=== PATIENT | male | born 1955 | race Caucasian/White ===

== ENCOUNTER → 2020-05-27 14:53 | Outpatient (BNVA) | payer MEDICARE, SELFPAY | PROVIDERS: PCP Internal Medicine; Visit Provider Urology | DX: R97.20 Elevated prostate specific antigen [PSA] (principal) | CPT/HCPCS: Q3014 ==

== ENCOUNTER 2020-06-14 08:18 | Outpatient (REF) | payer MEDICARE, SELFPAY ==
[2020-06-14 08:20] VITALS: BMI 27.6
[2020-06-14 08:22] VITALS: BP 145/86; PULSE 84; RESP 16; TEMP 36.1; O2SAT 96
--- NOTE | 2020-06-14 08:32 | MHC.SHP ---
Pre-Procedural Eval Section A The patient is an INPATIENT: No Changes since office visit: No Cold of Flu in the past 2 weeks, No New Medical Problems, No Changes in Medication and No Patient answered all questions The History & Physical has been completed within 30 days and I have reviewed it.: Yes Section B Chief Complaint: elevated prostate antigen Allergies: Allergies Allergy/AdvReac Type Severity Reaction Status Date / Time No Known Allergies Allergy Mild NONE Unverified 05/27/20 14:54 Plan I have reviewed the history and physical and performed a pertinent physical examination on my patient. No changes have occurred unless specified. TRUS prostate biopsy
--- NOTE | 2020-06-14 08:32 | PM.OP ---
Brief Operative Note Date of Service: 06/14/20 Pre-op diagnosis: elevated PSA Post-op diagnosis: same Procedure: TRUS - measure - prostate nerve block - prostate biopsy Surgeon: Hayden Elkins MD Anesthesia: local Estimated blood loss (mL): 0 Pathology: other (12 core prostate) Condition: stable Disposition: same day
--- NOTE | 2020-06-14 08:34 | W.PM.OPN ---
Operative Note Operative Note Date of Service: 06/14/20 Narrative: Preoperative diagnosis: Elevated PSA Postoperative diagnosis: Elevated PSA Procedure: 1. transrectal ultrasound measurement of prostate 2. transrectal ultrasound-guided pudendal nerve block 3. transrectal ultrasound-guided prostate biopsy 12 core Surgeon: Dr. Hayden Elkins Anesthetic: Local Indications for procedure: Elevated PSA - 8.0 Procedure: After informed consent was verified, the patient was brought into the procedure area and lay left-hand side down on the table. Patient identity confirmed. Perioperative antibiotics confirmed. Gel was placed per rectum Ultrasound probe was placed per rectum The prostate was measured in 3 dimensions Total volume equals 45gm There were multiple, small cystic structures and no calcifications noted and the prostate was homogeneous in nature A ultrasound-guided pudendal nerve block was performed using 10 cc of 1% lidocaine. 8 cc was placed at the base and 2 cc of the apex. A 12 core biopsy was performed with 6 cores each side. Two cores were taken at the apex, mid and base. Cores were spaced between lateral and medial. He tolerated the procedure well. Was able to ambulate to bathroom after 5 minutes. Printed instructions regarding antibiotic use and common side effects such as low-grade temperature and bleeding were given.
[2020-06-14 08:48] VITALS: BP 135/90; PULSE 79; RESP 16; O2SAT 96
== END 2020-06-14 08:19 | disposition home or self-care (01) ==
LOC: HO.MS 08:18
PROVIDERS: PCP Internal Medicine; Visit Provider Urology
PROC: (CPT 55700; principal; 2020-06-14 08:30)
DX: C61 Malignant neoplasm of prostate (principal); R97.20 Elevated prostate specific antigen [PSA]
CPT/HCPCS: 55700; 76942; 88305; 88344

== ENCOUNTER → 2020-06-28 15:49 | Outpatient (BNVA) | payer MEDICARE, SELFPAY | PROVIDERS: PCP Internal Medicine; Visit Provider Urology | DX: Z13.89 Encounter for screening for other disorder (principal) | CPT/HCPCS: Q3014 ==

== ENCOUNTER → 2020-07-08 09:50 | Outpatient (REF) | payer MEDICARE, SELFPAY ==
--- NOTE | ~2020-07-08 | NM_ITS ---
EXAMINATION: NM BONE SCAN OF THE WHOLE BODY CLINICAL INFORMATION: Prostate cancer. COMPARISON: None TECHNIQUE: Multiple gamma scintillation camera images of the whole body were performed 3 hours following the intravenous administration of 35 mCi Tc-99m MDP. FINDINGS: In the head, there is mild increased activity seen in the sinuses. Mild focal activity seen in bilateral frontal bones, nonspecific. In the thoracic cage and upper extremities, slightly heterogenous activity seen in the thoracic ribs with slight focal increased activity seen in the right 7th posterior rib. Mild increased activity seen in bilateral sternoclavicular joints suggestive of arthritic changes. In the spine, there is a focal increased activity seen in mid cervical spine. No additional abnormal activity seen in thoracic, lumbar or sacral spine. In the pelvis, no abnormal activity seen. In the lower extremities, there is mild focal increased activity seen in the right ankle. No other definite bony abnormalities are noted. The urinary bladder and faint visualization of both kidneys are noted. NM/NM bone scan whole body IMPRESSION: There is no convincing evidence for metastatic disease. However there is mild heterogeneity in the posterior thoracic vertebrae and mild increased focal activity seen in the right posterior 7th rib, nonspecific.
== END ==
LOC: HO.NUCMED 09:50
PROVIDERS: PCP Physician Assistant Medical; Visit Provider Urology
DX: C61 Malignant neoplasm of prostate (principal); C79.51 Secondary malignant neoplasm of bone
CPT/HCPCS: 78306; A9503

== ENCOUNTER → 2020-07-19 16:12 | Outpatient (BNVA) | payer MEDICARE, SELFPAY | PROVIDERS: PCP Internal Medicine; Visit Provider Urology | DX: Z13.89 Encounter for screening for other disorder (principal) | CPT/HCPCS: Q3014 ==

== ENCOUNTER → 2020-08-12 08:47 | Outpatient (BNVA) | payer MEDICARE, SELFPAY | PROVIDERS: PCP Internal Medicine; Visit Provider Urology | DX: C61 Malignant neoplasm of prostate (principal) | CPT/HCPCS: 99212 ==

== ENCOUNTER → 2020-09-27 10:31 | Outpatient (BNVA) | payer MEDICARE, SELFPAY | PROVIDERS: PCP Internal Medicine; Visit Provider Urology | DX: C61 Malignant neoplasm of prostate (principal) | CPT/HCPCS: 99212 ==

== ENCOUNTER → 2020-10-07 13:04 | Outpatient (BNVA) | payer MEDICARE, SELFPAY | PROVIDERS: PCP Internal Medicine; Visit Provider Urology | DX: C61 Malignant neoplasm of prostate (principal) | CPT/HCPCS: 96402; 99212; J9217 ==

== ENCOUNTER 2020-10-17 06:24 | Day surgery (SDC) | payer MEDICARE, SELFPAY ==
[2020-10-10 14:31] VITALS: BMI 27.6
[2020-10-17 07:03] VITALS: BP 160/94; PULSE 80; RESP 16; TEMP 36.3; O2SAT 95
[2020-10-17] MEDS: levoFLOXacin/D5W 500 MG/100 ML PIGGYBACK 100 MG IV (07:20)
--- NOTE | 2020-10-17 08:24 | P.CONAN_ITS ---
PMF Active Problems Active Problems: All Active Problems (Updated 10/10/20 @ 14:27 by Juana benavides) Elevated PSA (Acute) Prostate cancer (Acute) Past Medical History Medical History Asthma Elevated PSA Prostate cancer Surgical History Surgical History Hx of lumbar discectomy Hx of lumbar discectomy Hx of prostate biopsy Social History Social History Patient Tobacco Use Status: Never used Tobacco Use of substances other than those prescribed or required for medical reasons: No Are you DNR?: No Advance Directives: No Advance Directives Information Provided: Yes Meds Allergies Allergy/AdvReac Type Severity Reaction Status Date / Time No Known Allergies Allergy Mild NONE Verified 10/07/20 13:19 Home Medications Medication Instructions Recorded Confirmed Last Taken Type albuterol sulfate 90 mcg/actuation 90 mcg INHALATION Q4H PRN 05/27/20 10/10/20 Unknown History aerosol inhaler inhalational spacing device #1 ea 07/19/20 Unknown History peg-electrolyte solution 420 gram 4,000 ml PO DIRECTED 07/19/20 Unknown History oral solution prednisone 10 mg tablet 0 mg PO 07/19/20 Unknown History Exam Exam Date and Time: October 17, 2020 0824 Height,Weight and Vital Signs: Height 6 ft 2 in Weight 97.522 kg Last Vital Signs Temp 97.4 F 10/17/20 07:03 Pulse 80 10/17/20 07:03 Resp 16 10/17/20 07:03 BP 160/94 H 10/17/20 07:03 Pulse Ox 95 10/17/20 07:03 Airway Mallampati Class: II TM Dist: >3cm Neck ROM: Full Assessment and Plan Assessment Anesthesia Assessment: Anesthesia Plan Discussed and Chart Reviewed Final Anesthetic Review NPO: Yes ASA Class: II Final Preanesthetic Review: No Changes in Pt Med Stat, Meds/Allgs Chart Reviewed, Consent Obtained/Reviewed and Anes Risks/Benef Reviewed Patient Risk: Low Procedure Risk: Low Assessment/Block/Sedation in SS: Assess/Block/Sedation-SS Anesthetic Plan Anesthetic Plan: GA Disposition: Standard PACU
--- NOTE | 2020-10-17 08:33 | MHC.SHP ---
Pre-Procedural Eval Section A Date of Service: 10/17/20 Section B Chief Complaint: prostate ca Details of Present Illness: prostate cancer here for gold seed markers and SpaceOAR placement Relevant Family History (Specify if Yes): No Relevant Social History: None Present Medications: see Short Stay Collaborative assessment Medical History: No relevant PMH History of Previous Operations: No relevant previous surgery Allergies: Allergies Allergy/AdvReac Type Severity Reaction Status Date / Time No Known Allergies Allergy Mild NONE Verified 10/07/20 13:19 Review of Systems Sugical H&P ROS: Negative: Constitution, Cardiovascular, Respiratory, Neurological, Psychiatric, Hem-Onc, Allergic/Immunologic, Gastrointestinal, Genitourinary, Musculoskeletal, Integumentary, Endocrine and Eyes/Ears/Nose/Throat Exam Surgical H&P Exam: Normal: HEENT, Normal: Heart, Normal: Lungs, Normal: Extremities, Normal: Abdomen, Normal: Skin and Normal: Neurological Plan Diagnosis/Plan: Unchanged ( gold seed marker placement and SpaceOAR) I have reviewed the history and physical and performed a pertinent physical examination on my patient. No changes have occurred unless specified.
--- NOTE | 2020-10-17 09:01 | W.PM.OPN ---
Operative Note Operative Note Date of Service: 10/17/20 Narrative: Preoperative diagnosis: Prostate cancer Postoperative diagnosis: Prostate cancer Procedure: 1. Transrectal ultrasound-guided perineal gold seed placement 2. Treansrectal ultrasound-guided perineal SpaceOAR gel placement Surgeon: Dr. Hayden Elkins Anesthetic: Sedation Indications for procedure: Prostate Cancer Procedure: After informed consent was verified, the patient was brought into the operating room and anesthesia was performed per protocol. The patient was placed in a modified dorsal lithotomy position. Gel was placed per rectum Ultrasound probe was placed per rectum. The prostate was visualized in sagittal and transverse dimensions. Local anesthetic was infiltrated in the perineal area using 10 cc of lidocaine Gold seed markers were placed in a transperineal fashion using ultrasound guidance 3 gold seed markers placed in total. 2 on the right - 1 toward the base, the 2nd toward the apex. 1 on the left. The purpose is for triangulation. The 2nd part of the procedure was placement of SpaceOAR gel to allow consolidation for radiation delivery. The delivery needle was advanced bevel down in the midline under ultrasound guidance to the apex of the prostate. It was advanced in the plane the prostate from the rectum to the midpoint of the prostate. Location was determined using sagittal and transverse imaging. At the midpoint of the prostate 1 cc of saline was placed to confirm needle position. Second cc of saline was placed to confirm spread toward the base of the prostate. With the needle in the confirmed position 10 cc of gel mixture was injected. Good separation was seen of the rectum from the prostate space running in the midline from the base toward the apex of the prostate. Following completion of the procedure the probe was removed from the rectum. He tolerated the procedure well. He was extubated in the operating room and transferred in stable condition to the recovery area. Pathology none Drains none
[2020-10-17 09:10] VITALS: BP 138/95; PULSE 79; RESP 16; TEMP 36.4; O2SAT 99
[2020-10-17 09:15] VITALS: BP 142/96; PULSE 73; RESP 16; O2SAT 96
[2020-10-17 09:20] VITALS: BP 137/94; PULSE 74; RESP 16; O2SAT 97
[2020-10-17 09:25] VITALS: BP 140/94; PULSE 74; RESP 16; O2SAT 97
[2020-10-17 09:40] VITALS: BP 159/96; PULSE 70; RESP 16; TEMP 36.4; O2SAT 97
== END 2020-10-17 10:30 ==
LOC: HO.SSS 06:25
PROVIDERS: PCP Physician Assistant Medical; Visit Provider Urology
PROC: (CPT 55876; principal; 2020-10-17 08:30)
DX: C61 Malignant neoplasm of prostate (principal); R97.20 Elevated prostate specific antigen [PSA]; J45.909 Unspecified asthma, uncomplicated; Z79.899 Other long term (current) drug therapy
CPT/HCPCS: 55876; 55874; A4648; J1956; J3010

== ENCOUNTER → 2021-02-14 11:28 | Outpatient (BNVA) | payer MEDICARE, SELFPAY | PROVIDERS: PCP Physician Assistant Medical; Visit Provider Urology | DX: C61 Malignant neoplasm of prostate (principal) | CPT/HCPCS: 99212 ==

== ENCOUNTER 2021-06-14 10:57 | Outpatient (REF) | payer MEDICARE, SELFPAY ==
[2021-06-14 12:07] LABS: Blood Urea Nitrogen 12 mg/dL (9-16); Estimated Glomerular Filt Rate > 60
[2021-06-14 12:42] LABS: Prostate Specific Antigen 0.12 ng/mL (<0.05-4.0)
== END 2021-06-14 10:58 | disposition home or self-care (01) ==
LOC: HO.LAB 10:57
PROVIDERS: Visit Provider Urology
DX: Z12.5 Encounter for screening for malignant neoplasm of prostate (principal); C61 Malignant neoplasm of prostate; N26.1 Atrophy of kidney (terminal)
CPT/HCPCS: 36415; 82565; 84153; 84520

== ENCOUNTER → 2021-06-23 08:20 | Outpatient (BNVA) | payer MEDICARE, SELFPAY | PROVIDERS: PCP Physician Assistant Medical; Visit Provider Urology | DX: C61 Malignant neoplasm of prostate (principal) | CPT/HCPCS: Q3014 ==

== ENCOUNTER 2021-10-16 11:37 | Outpatient (REF) | payer MEDICARE, SELFPAY ==
[2021-10-16 16:09] LABS: Prostate Specific Antigen < 0.05 ng/mL (<0.05-4.0)
[2021-10-20 11:46] LABS: Testosterone, Total 280 ng/dL (250-1100)
== END 2021-10-16 11:38 | disposition home or self-care (01) ==
LOC: HO.LAB 11:37
PROVIDERS: Visit Provider Urology
DX: Z12.5 Encounter for screening for malignant neoplasm of prostate (principal); C61 Malignant neoplasm of prostate
CPT/HCPCS: 36415; 84153; 84403

== ENCOUNTER → 2021-10-24 08:23 | Outpatient (BNVA) | payer MEDICARE, SELFPAY | PROVIDERS: PCP Physician Assistant Medical; Visit Provider Urology | DX: C61 Malignant neoplasm of prostate (principal); N40.1 Benign prostatic hyperplasia with lower urinary tract symptoms; R33.8 Other retention of urine; Z79.899 Other long term (current) drug therapy | CPT/HCPCS: Q3014 ==

== ENCOUNTER 2022-04-05 11:06 | Outpatient (REF) | payer MEDICARE, SELFPAY ==
[2022-04-05 13:43] LABS: Prostate Specific Antigen < 0.10 ng/mL (<0.05-4.0)
[2022-04-13 14:17] LABS: Testosterone, Total 337 ng/dL (250-1100)
== END 2022-04-05 11:07 | disposition home or self-care (01) ==
LOC: HO.LAB 11:06
PROVIDERS: Visit Provider Urology
DX: E29.1 Testicular hypofunction (principal); C61 Malignant neoplasm of prostate
CPT/HCPCS: 36415; 84153; 84403

== ENCOUNTER → 2022-04-13 15:02 | Outpatient (BNVA) | payer MEDICARE, SELFPAY | PROVIDERS: PCP Physician Assistant Medical; Visit Provider Urology | DX: C61 Malignant neoplasm of prostate (principal) | CPT/HCPCS: 99212 ==

== ENCOUNTER 2022-07-18 11:00 | Outpatient (REF) | payer MEDICARE, SELFPAY ==
[2022-07-18 12:59] LABS: Prostate Specific Antigen 0.32 ng/mL (<0.05-4.0)
== END 2022-07-18 11:01 | disposition home or self-care (01) ==
LOC: HO.LAB 11:00
PROVIDERS: Visit Provider Urology
DX: Z12.5 Encounter for screening for malignant neoplasm of prostate (principal); C61 Malignant neoplasm of prostate
CPT/HCPCS: 36415; 84153

== ENCOUNTER → 2022-07-25 14:29 | Outpatient (BNVA) | payer MEDICARE, SELFPAY | PROVIDERS: PCP Physician Assistant Medical; Visit Provider Urology | DX: C61 Malignant neoplasm of prostate (principal) | CPT/HCPCS: Q3014 ==

== ENCOUNTER 2022-11-20 11:20 | Outpatient (REF) | payer MEDICARE, SELFPAY ==
[2022-11-20 14:04] LABS: Prostate Specific Antigen 0.33 ng/mL (<0.05-4.0)
== END 2022-11-20 11:21 | disposition home or self-care (01) ==
LOC: HO.LAB 11:20
PROVIDERS: PCP Internal Medicine; Visit Provider Urology
DX: Z12.5 Encounter for screening for malignant neoplasm of prostate (principal); C61 Malignant neoplasm of prostate
CPT/HCPCS: 36415; 84153